=== PATIENT | female | born 1935 | race Caucasian/White ===

== ENCOUNTER 2016-10-05 18:32 | Emergency (ER) | payer OTHER ==
[~2016-10-05] VITALS: Ht 167.6 cm; Wt 80.8 kg
[~2016-10-05 18:32] MED LIST: ADULT LOW DOSE81 M1 PO; ASPIR 8181 M1 PO; BYSTOLIC10 MG; COUMADIN5 MG PO; ESCITALOPRAM OXA5 MG PO; Ecotrin PO; FIORICET 50-301 EACH PO; FISH OIL 1,001000 M1; FISH OIL300 MG PO; FUROSEMIDE40 MG PO; Feosol PO; HYDROCHLOROTH12.5 M3 PO; HYDROCHLOROTHIA25 MG PO; IRBESARTAN300 MG PO; LASIX20 MG PO; LOPRESSOR50 MG PO; LOVENOX80 MG/0.8 SC; Lasix PO; NORCO 5/3251 TABLET PO; OMEPRAZOLE20 M3 PO; OXYBUTYNIN CHLOR5 MG PO; SIMVASTATIN20 M1 PO; SIMVASTATIN20 MG PO; Senokot S,Pericolace PO; Vicodin,Norco 5/325 PO; ZESTRIL,PRINIVI20 MG PO; ZOFRAN4 MG PO; [UNRECOGNIZED DRUG - CODE] PO
[2016-10-05 19:08] LABS: EOSINOPHIL COUNT 0.1 K/uL (0-0.3); HEMATOCRIT 36.6 % (36.0-46.0); LYMPHOCYTE COUNT 1.1 K/uL (1.0-2.8); MCH 31.3 PG (29.0-34.0); MCHC 34.4 G/DL (30.0-36.0); MEAN PLAT.VOLUME 10.8 uM^3 (9.5-12.4); MONOCYTE (%) 6.5 % (3-12); MONOCYTE COUNT 0.5 K/uL (0-0.8); NEUTROPHIL (%) 77.8 % (45-76); NEUTROPHIL COUNT 6.1 K/uL (1.8-6.4); PLATELET COUNT 171 K/uL (156-360); RBC DIS.WIDTH-CV 12.3 % (11.8-14.6); RBC DIS.WIDTH-SD 40.1 % (39-53); RED BLOOD COUNT 4.02 M/uL (3.80-5.20); WHITE BLOOD COUNT 7.8 K/uL (4.1-10.2)
[2016-10-05 19:16] LABS: CHLORIDE 106 mEq/L (99-109); POTASSIUM 3.7 mEq/L (3.7-5.4); SODIUM 141 mEq/L (136-147)
[2016-10-05 19:18] LABS: GLUCOSE 105 mg/dL (70-99)
[2016-10-05 19:20] LABS: ANION GAP 10 MEQ/L (2-14); PROTHROMBIN TIME 10.3 (9.2-11.2)
[2016-10-05 19:22] LABS: GFR ESTIMATE (CALCULATED) 57 mL/min/
[2016-10-05 19:23] LABS: UREA NITROGEN (BUN) 22 mg/dL (9-23)
[2016-10-05 19:30] LABS: TROP-I INTERPRETATION NEGATIVE; TROPONIN-I < 0.01 ng/mL (0.0-0.30)
[2016-10-05] MEDS ORDERED: LEVAQUIN750 MG PO (21:43)
[2016-10-05] MEDS ORDERED: SIMVASTATIN40 MG PO (22:17)
[2016-10-05] MEDS ORDERED: LOPRESSOR25 MG PO (22:17)
[2016-10-05] MEDS ORDERED: HYDROCHLOROTHIA25 MG PO (22:18)
[2016-10-05] MEDS ORDERED: VITAMIN D31000 UNIT PO (22:20)
[2016-10-05] MEDS ORDERED: VITAMIN B-12250 MCG PO (22:20)
[2016-10-06 02:16] LABS: TROP-I INTERPRETATION NEGATIVE; TROPONIN-I < 0.01 ng/mL (0.0-0.30)
[2016-10-06 07:56] LABS: TROP-I INTERPRETATION NEGATIVE; TROPONIN-I < 0.01 ng/mL (0.0-0.30)
[2016-10-06] MEDS ORDERED: LEVAQUIN750 MG PO (12:39)
[2016-10-06] MEDS ORDERED: VENTOLIN HFA18 GM IH (12:44)
[2016-10-06] MEDS ORDERED: SPIRIVA1 INHALATI IH (12:44)
[2016-10-06 13:18] VITALS: BP 144/69
== END 2016-10-06 13:36 | disposition home or self-care (01) ==
LOC: EME 18:32 → EDOF 10-06 00:05 → EME 10-06 00:05 → EDOF 10-06 00:05
PROVIDERS: Emergency Medicine; Physician Assistant
DX: J18.9 Pneumonia, unspecified organism (principal); I10 Essential (primary) hypertension; E78.5 Hyperlipidemia, unspecified; R16.1 Splenomegaly, not elsewhere classified; Z87.891 Personal history of nicotine dependence; I50.30 Unspecified diastolic (congestive) heart failure; Z82.49 Family history of ischemic heart disease and other diseases of the circulatory system; Z82.0 Family history of epilepsy and other diseases of the nervous system; Z88.2 Allergy status to sulfonamides
CPT/HCPCS: 71010; 71275; 80048; 83735; 84484; 85025; 85610; 85730; 87040; 93005; 99202; 99281; 99285; G0378; J0456; J0696; J1644; J7030; J7050

== ENCOUNTER 2017-03-29 22:32 | Emergency (ER) | payer OTHER ==
[~2017-03-29] VITALS: Ht 167.6 cm; Wt 82.1 kg
[~2017-03-29 22:32] MED LIST changes: +LEVAQUIN750 MG PO; +LOPRESSOR25 MG PO; +SIMVASTATIN40 MG PO; +SPIRIVA1 INHALATI IH; +VENTOLIN HFA18 GM IH; +VITAMIN B-12250 MCG PO; +VITAMIN D31000 UNIT PO
[2017-03-30] MEDS ORDERED: NORCO 5/3251 TABLET PO (01:13)
[2017-03-30 01:29] VITALS: BP 155/66
== END 2017-03-30 01:33 | disposition home or self-care (01) ==
LOC: EME 22:32
DX: S00.03XA Contusion of scalp, initial encounter (principal); W17.89XA Other fall from one level to another, initial encounter; Y93.A1 Activity, exercise machines primarily for cardiorespiratory conditioning; I10 Essential (primary) hypertension; E78.5 Hyperlipidemia, unspecified; K21.9 Gastro-esophageal reflux disease without esophagitis; Z79.82 Long term (current) use of aspirin; Z87.891 Personal history of nicotine dependence
CPT/HCPCS: 70450; 99281; 99284

== ENCOUNTER 2018-02-26 14:54 | Emergency (ER) | payer OTHER ==
[~2018-02-26] VITALS: Ht 165.1 cm; Wt 82.6 kg
[2018-02-26 16:16] LABS: HEMATOCRIT 41.3 % (36.0-46.0); HEMOGLOBIN 14.4 G/DL (11.9-15.5); MCH 32.1 PG (29.0-34.0); MCHC 34.9 G/DL (30.0-36.0); MCV 92.2 FL (83-99); PLATELET COUNT 201 K/uL (156-360); RBC DIS.WIDTH-CV 12.2 % (11.8-14.6); RBC DIS.WIDTH-SD 40.5 % (39-53); RED BLOOD COUNT 4.48 M/uL (3.80-5.20); WHITE BLOOD COUNT 9.9 K/uL (4.1-10.2)
[2018-02-26 16:24] LABS: ALBUMIN 3.8 g/dL (3.2-4.8); CHLORIDE 107 mEq/L (99-109); POTASSIUM 4.6 mEq/L (3.7-5.4); SODIUM 142 mEq/L (136-147)
[2018-02-26 16:27] LABS: GLUCOSE 90 mg/dL (70-99); TOTAL PROTEIN 6.6 g/dL (6.4-8.3)
[2018-02-26 16:29] LABS: TOTAL BILIRUBIN 0.7 mg/dL (0.0-1.0)
[2018-02-26 16:30] LABS: ALKALINE PHOSPHATASE 73 IU/L (3-129); GFR ESTIMATE (CALCULATED) 56 mL/min/
[2018-02-26 16:31] LABS: UREA NITROGEN (BUN) 17 mg/dL (9-23)
[2018-02-26 16:32] LABS: AST (GOT) 19 IU/L (2-34)
[2018-02-26 16:33] LABS: ALT (GPT) 15 IU/L (3-49)
[2018-02-26 16:54] LABS: APPEARANCE SL.HAZY ((CLEAR)); BILIRUBIN NEGATIVE; BLOOD NEGATIVE; COLOR YELLOW ((YELLOW)); GLUCOSE (STRIP) NEGATIVE; KETONES NEGATIVE; LEUKOCYTES NEGATIVE; NITRITE NEGATIVE; PROTEIN (STRIP) 30; SPECIFIC GRAVITY 1.016 (1.000-1.030); UROBILINOGEN 0.2 MG/DL (0.2-1.0)
[2018-02-26 17:20] LABS: BACTERIA NONE SEEN /HPF; EPITHELIAL CELLS 1+ /HPF; MUCUS TRACE /LPF; UCUL ADDED? NO; WHITE BLOOD CELLS 0-5 /HPF (0-5)
[2018-02-26 17:43] LABS: LIPASE 41 U/L (1.0-51.0)
[2018-02-26 17:47] LABS: TROP-I INTERPRETATION NEGATIVE; TROPONIN-I 0.01 ng/mL (0.0-0.30)
[2018-02-26] MEDS ORDERED: COLACE100 MG PO (19:59)
[2018-02-26] MEDS ORDERED: MIRALAX255 GM PO (19:59)
[2018-02-26] MEDS ORDERED: PRILOSEC20 MG PO (19:59)
[2018-02-26] MEDS ORDERED: REGLAN10 MG PO (20:01)
[2018-02-26 20:26] VITALS: BP 142/90
== END 2018-02-26 20:27 | disposition home or self-care (01) ==
LOC: EME 14:54
DX: R10.13 Epigastric pain (principal); K59.00 Constipation, unspecified; K80.20 Calculus of gallbladder without cholecystitis without obstruction; N28.1 Cyst of kidney, acquired; K21.9 Gastro-esophageal reflux disease without esophagitis; I10 Essential (primary) hypertension; E78.5 Hyperlipidemia, unspecified; I50.9 Heart failure, unspecified; Z79.82 Long term (current) use of aspirin; Z87.448 Personal history of other diseases of urinary system; Z87.891 Personal history of nicotine dependence; Z85.9 Personal history of malignant neoplasm, unspecified; Z96.651 Presence of right artificial knee joint; Z88.2 Allergy status to sulfonamides
CPT/HCPCS: 71046; 74177; 80053; 81003; 83690; 84484; 85027; 93005; 99281; 99284

== ENCOUNTER 2018-03-30 11:55 | Emergency (ER) | payer OTHER ==
[~2018-03-30] VITALS: Ht 165.1 cm; Wt 87.2 kg
[~2018-03-30 11:55] MED LIST changes: +COLACE100 MG PO; +MIRALAX255 GM PO; +PRILOSEC20 MG PO; +REGLAN10 MG PO
[2018-03-30 14:54] VITALS: BP 177/72
== END 2018-03-30 14:56 | disposition home or self-care (01) ==
LOC: EME 11:55
DX: S51.011A Laceration without foreign body of right elbow, initial encounter (principal); S00.83XA Contusion of other part of head, initial encounter; W01.0XXA Fall on same level from slipping, tripping and stumbling without subsequent striking against object, initial encounter; Y93.E2 Activity, laundry; Z23 Encounter for immunization; I10 Essential (primary) hypertension; K21.9 Gastro-esophageal reflux disease without esophagitis; E78.5 Hyperlipidemia, unspecified; Z79.82 Long term (current) use of aspirin; Z87.891 Personal history of nicotine dependence; Z96.651 Presence of right artificial knee joint; Z86.79 Personal history of other diseases of the circulatory system; Z85.9 Personal history of malignant neoplasm, unspecified; Z88.2 Allergy status to sulfonamides
CPT/HCPCS: 70450; 73080; 73090; 99281; 99284

== ENCOUNTER 2018-03-31 10:02 | Emergency (ER) | payer OTHER ==
[~2018-03-31] VITALS: Ht 165.1 cm; Wt 85.2 kg
[2018-03-31 12:07] VITALS: BP 185/52
== END 2018-03-31 12:09 | disposition home or self-care (01) ==
LOC: EME 10:02
PROC: 0HQDXZZ Repair Right Lower Arm Skin, External Approach (ICD-10-PCS; principal; 2018-03-31)
DX: S51.811A Laceration without foreign body of right forearm, initial encounter (principal); Z91.81 History of falling; K21.9 Gastro-esophageal reflux disease without esophagitis; E78.5 Hyperlipidemia, unspecified; I11.0 Hypertensive heart disease with heart failure; I50.9 Heart failure, unspecified; Z87.891 Personal history of nicotine dependence; Z96.651 Presence of right artificial knee joint; Z79.82 Long term (current) use of aspirin; Z88.2 Allergy status to sulfonamides
CPT/HCPCS: 99281; 99284